=== PATIENT | female | born 1970 | race Caucasian/White ===

== ENCOUNTER → 2020-07-02 10:08 | Outpatient (CLI) | payer OTHER, SELFPAY ==
[2020-07-02 11:47] LABS: Hematocrit 36.9 % (36-46); Hemoglobin 12.1 g/dL (12.0-16.0); Mean Corpuscular HGB Conc 32.8 % (30-36); Mean Corpuscular Hemoglobin 31.4 PG (26-34); Mean Corpuscular Volume 95.7 fL (80-100); Platelet Count 275 X10^3/uL (150-400); Red Blood Cell Count 3.86 X10^6/uL (4.0-5.2); White Blood Cell Count 5.9 X10^3/uL (4.5-11.0)
[2020-07-02 11:52] LABS: Alanine Aminotransferase 17 IU/L (<35); Albumin 4.3 g/dL (3.5-5.0); Albumin Globulin Ratio 1.4 (1.0-2.8); Alkaline Phosphatase 52 U/L (38-126); Aspartate Aminotransferase 39 IU/L (14-36); Bilirubin Total 0.7 mg/dL (0.2-1.3); Blood Urea Nitrogen 13 mg/dL (7-17); Calcium 9.1 mg/dL (8.4-10.2); Carbon Dioxide 31 mmol/L (22-32); Chloride 103 mmol/L (98-107); Cholesterol 178 mg/dL (140-199); Estimated Glomerular Filt Rate > 60.0 mL/min (>60); Glucose 109 mg/dL (70-100); HDL Cholesterol 84 mg/dL (40-60); HEMOLYSIS < 15 (0-50); LDL Cholesterol Calculated 85 mg/dL (<100); Potassium 4.2 mmol/L (3.4-5.1); Sodium 135 mmol/L (137-145); Total Protein 7.3 g/dL (6.3-8.2); Triglycerides 45 mg/dL (35-150)
[2020-07-02 12:21] LABS: TSH w/ Reflex to FT4 2.08 uIU/mL (0.47-4.68)
== END ==
PROVIDERS: PCP Registered Nurse Diabetes Educator; Referring Provider Registered Nurse Diabetes Educator; Visit Provider Registered Nurse Diabetes Educator
DX: Z00.00 Encounter for general adult medical examination without abnormal findings (principal)
CPT/HCPCS: 36415; 80053; 80061; 84443; 85027

== ENCOUNTER → 2020-08-12 15:31 | Outpatient (CLI) | payer OTHER, SELFPAY ==
--- NOTE | 2020-08-12 15:31 | DI.MG.S_ITS ---
BILATERAL DIGITAL SCREENING MAMMOGRAM 3D/2D WITH CAD: 08/12/2020 CLINICAL: Routine screening. Comparison is made to exams dated: 06/09/2017 mammogram and 06/01/2018 mammogram - outside location. The tissue of both breasts is heterogeneously dense. This may lower the sensitivity of mammography. Current study was also evaluated with a Computer Aided Detection (CAD) system. No significant masses, calcifications, or other findings are seen in either breast. There has been no significant interval change. IMPRESSION: NEGATIVE There is no mammographic evidence of malignancy. A 1 year screening mammogram is recommended. This exam was interpreted at Station ID: [id number]. NOTE: For mammograms, a report in lay terms will be sent to the patient. Approximately 15% of breast malignancies will not be visualized mammographically. In the management of a palpable breast mass, a negative mammogram must not discourage biopsy of a clinically suspicious lesion. Electronically Signed By: Moise Bradford M.D., jr/brandan:08/12/2020 16:31:55 letter sent: Normal Exam ACR BI-RADS Category 1: Negative 3341F
== END ==
PROVIDERS: PCP Registered Nurse Diabetes Educator; Referring Provider Registered Nurse Diabetes Educator; Visit Provider Registered Nurse Diabetes Educator
DX: Z12.31 Encounter for screening mammogram for malignant neoplasm of breast (principal)
CPT/HCPCS: 77063; 77067

== ENCOUNTER → 2020-10-05 09:20 | Outpatient (CLI) | payer OTHER, SELFPAY ==
[2020-10-05 10:41] LABS: Alanine Aminotransferase 21 IU/L (<35); Albumin 4.1 g/dL (3.5-5.0); Albumin Globulin Ratio 1.6 (1.0-2.8); Alkaline Phosphatase 53 U/L (38-126); Aspartate Aminotransferase 36 IU/L (14-36); Bilirubin Total 0.6 mg/dL (0.2-1.3); Bilirubin Unconjugated 0.8 mg/dL (0.0-1.1); Globulin 2.6 g/dL (1.7-4.1); Glucose 106 mg/dL (70-100); HEMOLYSIS < 15 (0-50); Total Protein 6.7 g/dL (6.3-8.2)
== END ==
PROVIDERS: PCP Registered Nurse Diabetes Educator; Referring Provider Registered Nurse Diabetes Educator; Visit Provider Registered Nurse Diabetes Educator
DX: R73.01 Impaired fasting glucose (principal); R74.8 Abnormal levels of other serum enzymes
CPT/HCPCS: 36415; 80076; 82947

== ENCOUNTER → 2021-01-20 16:14 | Outpatient (CLI) | payer OTHER, SELFPAY ==
[2021-01-21 06:32] LABS: Hepatitis B Surf Ab Qualitativ Non Reactive (.)
[2021-01-21 10:45] LABS: Rubeola Measles IgG 22.7 AU/mL (Immune >16.4); Varicella IgG Antibody 447 index (Immune >165)
[2021-01-21 17:11] LABS: Mumps Virus IgG Antibody 11.3 AU/mL (Immune >10.9)
== END ==
PROVIDERS: PCP Registered Nurse Diabetes Educator; Referring Provider Registered Nurse Diabetes Educator; Visit Provider Registered Nurse Diabetes Educator
DX: Z01.84 Encounter for antibody response examination (principal); R74.8 Abnormal levels of other serum enzymes; R73.01 Impaired fasting glucose
CPT/HCPCS: 36415; 86706; 86735; 86762; 86765; 86787

== ENCOUNTER → 2021-07-13 08:53 | Outpatient (CLI) | payer OTHER, SELFPAY ==
[2021-07-13 09:20] LABS: Add Manual Diff / Slide Review NO; Basophils Absolute Auto 100 /uL (0-100); Basophils Percent Auto 2.8 % (0-2); Eosinophils Absolute Auto 200 /uL (0-450); Eosinophils Percent Auto 4.7 % (2-4); Hematocrit 36.7 % (36-46); Hemoglobin 12.1 g/dL (12.0-16.0); Lymphocytes Absolute Auto 1700 /uL (1100-4500); Lymphocytes Percent Auto 36.2 % (25-40); Mean Corpuscular HGB Conc 33.1 % (30-36); Mean Corpuscular Hemoglobin 31.6 PG (26-34); Mean Corpuscular Volume 95.4 fL (80-100); Monocytes Absolute Auto 500 /uL (0-900); Monocytes Percent Auto 9.8 % (3-14); Neutrophils Absolute Auto 2100 /uL (1500-7000); Neutrophils Percent Auto 46.5 % (50-75); Platelet Count 291 X10^3/uL (150-400); Red Blood Cell Count 3.84 X10^6/uL (4.0-5.2); Red Cell Distribution Width 13.8 % (11.6-14.8); White Blood Cell Count 4.6 X10^3/uL (4.5-11.0)
[2021-07-13 09:32] LABS: Appearance Urine UA CLEAR; Bilirubin Urine UA NEGATIVE (NEGATIVE); Color Urine UA YELLOW; Glucose Urine UA NEGATIVE (Negative); Ketones Urine UA NEGATIVE (NEGATIVE); Leukocyte Esterase Urine UA NEGATIVE (NEGATIVE); Nitrite Urine UA NEGATIVE (Negative); Occult Blood Urine UA NEGATIVE (Negative); Protein Urine UA NEGATIVE (Negative); Urobilinogen Urine UA 0.2 E.U./dL (0.2)
[2021-07-13 09:35] LABS: Bacteria Urine None Seen; Culture Indicated Urine Cult Not Indicated; RBC Urine None Seen (0-5/HPF); Urine Comments Microscopic Normal; WBC Urine None Seen (0-5/HPF)
[2021-07-13 09:36] LABS: Alanine Aminotransferase 30 IU/L (<35); Albumin 4.7 g/dL (3.5-5.0); Albumin Globulin Ratio 1.4 (1.0-2.8); Alkaline Phosphatase 53 U/L (38-126); Aspartate Aminotransferase 45 IU/L (14-36); BUN Creatinine Ratio 18.8 (6-22); Bilirubin Total 0.7 mg/dL (0.2-1.3); Blood Urea Nitrogen 15 mg/dL (7-17); C-Reactive Protein Quant < 0.5 mg/dL (<1.0); Carbon Dioxide 29 mmol/L (22-32); Chloride 105 mmol/L (98-107); Cholesterol 183 mg/dL (140-199); Estimated Glomerular Filt Rate > 60.0 mL/min (>60); Globulin 3.3 g/dL (1.7-4.1); Glucose 108 mg/dL (70-100); HDL Cholesterol 98 mg/dL (40-60); HEMOLYSIS < 15 (0-50); LDL Cholesterol Calculated 78 mg/dL (<100); Sodium 138 mmol/L (137-145); Triglycerides 37 mg/dL (35-150)
[2021-07-13 10:35] LABS: TSH w/ Reflex to FT4 2.29 uIU/mL (0.47-4.68)
[2021-07-13 11:54] LABS: Hemoglobin A1C% w Est Avg Glu 5.4 % (4.0-6.0)
== END ==
PROVIDERS: PCP Registered Nurse Diabetes Educator; Referring Provider Registered Nurse Diabetes Educator; Visit Provider Registered Nurse Diabetes Educator
DX: R74.8 Abnormal levels of other serum enzymes (principal); R73.01 Impaired fasting glucose; Z00.00 Encounter for general adult medical examination without abnormal findings; R61 Generalized hyperhidrosis
CPT/HCPCS: 36415; 80053; 80061; 81001; 83001; 83036; 84443; 85025; 86140

== ENCOUNTER → 2021-08-16 16:04 | Outpatient (CLI) | payer OTHER, SELFPAY ==
--- NOTE | 2021-08-16 16:05 | DI.MG.S_ITS ---
BILATERAL DIGITAL SCREENING MAMMOGRAM 3D/2D WITH CAD: 08/16/2021 CLINICAL: Routine screening. Comparison is made to exams dated: 08/12/2020 mammogram - [facility], 06/01/2018 mammogram, and 06/09/2017 mammogram - outside location. The tissue of both breasts is heterogeneously dense. This may lower the sensitivity of mammography. Current study was also evaluated with a Computer Aided Detection (CAD) system. No significant masses, calcifications, or other findings are seen in either breast. There has been no significant interval change. IMPRESSION: NEGATIVE There is no mammographic evidence of malignancy. A 1 year screening mammogram is recommended. This exam was interpreted at Station ID: [id number]. NOTE: For mammograms, a report in lay terms will be sent to the patient. Approximately 15% of breast malignancies will not be visualized mammographically. In the management of a palpable breast mass, a negative mammogram must not discourage biopsy of a clinically suspicious lesion. Electronically Signed By: Jareth oglesby/brandan:08/18/2021 08:57:21 letter sent: Normal Exam ACR BI-RADS Category 1: Negative 3341F
== END ==
PROVIDERS: PCP Registered Nurse Diabetes Educator; Referring Provider Registered Nurse Diabetes Educator; Visit Provider Registered Nurse Diabetes Educator
DX: Z12.31 Encounter for screening mammogram for malignant neoplasm of breast (principal)
CPT/HCPCS: 77063; 77067

== ENCOUNTER → 2021-08-31 08:11 | Outpatient (CLI) | payer OTHER, SELFPAY ==
[2021-08-31 09:02] LABS: Hematocrit 35.8 % (36-46); Hemoglobin 12.1 g/dL (12.0-16.0); Mean Corpuscular HGB Conc 33.8 % (30-36); Mean Corpuscular Volume 94.9 fL (80-100); Platelet Count 309 X10^3/uL (150-400); Red Blood Cell Count 3.78 X10^6/uL (4.0-5.2); Red Cell Distribution Width 13.1 % (11.6-14.8); White Blood Cell Count 6.6 X10^3/uL (4.5-11.0)
[2021-08-31 09:14] LABS: Hemoglobin A1C% w Est Avg Glu 5.5 % (4.0-6.0)
[2021-08-31 09:43] LABS: Alanine Aminotransferase 37 IU/L (<35); Albumin 4.1 g/dL (3.5-5.0); Albumin Globulin Ratio 1.4 (1.0-2.8); Alkaline Phosphatase 53 U/L (38-126); Aspartate Aminotransferase 51 IU/L (14-36); BUN Creatinine Ratio 21.8 (6-22); Bilirubin Total 0.5 mg/dL (0.2-1.3); Blood Urea Nitrogen 19 mg/dL (7-17); Calcium 8.9 mg/dL (8.4-10.2); Carbon Dioxide 29 mmol/L (22-32); Chloride 104 mmol/L (98-107); Cholesterol 181 mg/dL (140-199); Estimated Glomerular Filt Rate > 60.0 mL/min (>60); Globulin 2.9 g/dL (1.7-4.1); Glucose 100 mg/dL (70-100); HDL Cholesterol 85 mg/dL (40-60); HEMOLYSIS < 15 (0-50); LDL Cholesterol Calculated 87 mg/dL (<100); Potassium 4.7 mmol/L (3.4-5.1); Sodium 141 mmol/L (137-145); Triglycerides 47 mg/dL (35-150)
[2021-08-31 10:19] LABS: TSH w/ Reflex to FT4 2.12 uIU/mL (0.47-4.68)
== END ==
PROVIDERS: PCP Registered Nurse Diabetes Educator; Referring Provider Registered Nurse Diabetes Educator; Visit Provider Registered Nurse Diabetes Educator
DX: R73.01 Impaired fasting glucose (principal); R74.8 Abnormal levels of other serum enzymes
CPT/HCPCS: 36415; 80053; 80061; 83036; 84443; 85027

== ENCOUNTER → 2021-09-07 08:38 | Outpatient (CLI) | payer OTHER, SELFPAY ==
[2021-09-07 10:09] LABS: HEMOLYSIS < 15 (0-50); Iron 79 ug/dL (37-170)
[2021-09-07 10:20] LABS: Percent Iron Saturation 22 % (15-50); Total Iron Binding Capacity 365 ug/dL (265-497); Transferrin 287 mg/dL (206-381)
[2021-09-07 10:47] LABS: Hepatitis B Surface Antigen NEGATIVE s/c (NEGATIVE)
[2021-09-07 10:51] LABS: Ferritin 16 ng/mL (6-137)
[2021-09-07 11:05] LABS: Hep C Virus Ab w/Reflex Quant NEGATIVE s/c (NEGATIVE)
[2021-09-08 02:19] LABS: Hepatitis B Core AB w/Reflex Negative (Negative)
[2021-09-08 16:53] LABS: Deamidated Gliadin Ab IgA 3 units (0-19); Deamidated Gliadin Ab IgG 2 units (0-19); Immunoglobulin A,Qn 476 mg/dL (87-352); t-Transglutaminase IgA <2 U/mL (0-3)
== END ==
PROVIDERS: PCP Registered Nurse Diabetes Educator; Referring Provider Registered Nurse Diabetes Educator; Visit Provider Registered Nurse Diabetes Educator
DX: R74.8 Abnormal levels of other serum enzymes (principal)
CPT/HCPCS: 36415; 82728; 82784; 83516; 83540; 83550; 86704; 86803; 87340

== ENCOUNTER → 2021-09-15 07:40 | Outpatient (CLI) | payer OTHER, SELFPAY ==
[2021-09-16 07:45] LABS: Immunoglobulin A 479 mg/dL (87-352); Immunoglobulin G, Quantitative 958 mg/dL (586-1602); Immunoglobulin M, Quantitative 50 mg/dL (26-217)
[2021-09-16 16:51] LABS: Free Kappa Lt Chains, Serum 13.8 mg/L (3.3-19.4); Free Lambda Lt Chains,Serum 19.8 mg/L (5.7-26.3)
[2021-09-17 12:07] LABS: Albumin 3.9 g/dL (2.9-4.4); Alpha-1-Globulin 0.2 g/dL (0.0-0.4); Alpha-2-Globulin 0.5 g/dL (0.4-1.0); Gamma Globulin 0.9 g/dL (0.4-1.8); Globulin Total 2.7 g/dL (2.2-3.9); Protein, Total 6.6 g/dL (6.0-8.5)
== END ==
PROVIDERS: PCP Registered Nurse Diabetes Educator; Referring Provider Registered Nurse Diabetes Educator; Visit Provider Registered Nurse Diabetes Educator
DX: R76.8 Other specified abnormal immunological findings in serum (principal)
CPT/HCPCS: 36415; 82784; 83883; 84155; 84165

== ENCOUNTER → 2021-10-04 15:33 | Outpatient (CLI) | payer OTHER, SELFPAY ==
--- NOTE | 2021-10-04 15:34 | DI.US.S_ITS ---
PROCEDURE: US ABDOMEN LIMITED INDICATIONS: ELEVATED LIVER ENZYMES TECHNIQUE: Real-time focused scanning was performed of the abdomen, with image documentation. COMPARISON: None. FINDINGS: Liver is normal in size and homogeneous in echotexture. Gallbladder is sonographically normal. No gallstones. No gallbladder wall thickening. No pericholecystic fluid. No sonographic Pham sign. Biliary tree is nondilated. Common bile duct measures 4.5 millimeters. Pancreas is sonographically normal. IMPRESSION: No sonographic abnormality identified. Dictated by: Antoinette Zepeda MD, PhD on 10/05/2021 at 10:54 Approved by: Antoinette Zepeda MD, PhD on 10/05/2021 at 10:55
== END ==
PROVIDERS: PCP Registered Nurse Diabetes Educator; Referring Provider Registered Nurse Diabetes Educator; Visit Provider Registered Nurse Diabetes Educator
DX: R74.8 Abnormal levels of other serum enzymes (principal)
CPT/HCPCS: 76705

== ENCOUNTER → 2021-10-05 07:03 | Outpatient (CLI) | payer OTHER, SELFPAY ==
--- NOTE | 2021-10-05 07:04 | DI.US.S_ITS ---
PROCEDURE: US EXTREMELY NONVASC UPPER RT INDICATIONS: 2 SOFT TISSUE MASSES RIGHT FOREARM TECHNIQUE: Real-time scanning was performed of the right upper extremity, with image documentation. COMPARISON: None. FINDINGS: 0.8 x 0.5 x 0.8 and 1.3 x 0.3 x 0.6 centimeter isoechoic solid masses corresponds to clinically palpable lesions. Doppler evaluation of the lesions demonstrates no internal vascularity. IMPRESSION: Small, nonvascular solid masses corresponds to clinically palpable lesions. The masses have nonspecific imaging characteristics. Decision to biopsy should be based on clinical assessment. Dictated by: Antoinette Zepeda MD, PhD on 10/05/2021 at 12:28 Approved by: Antoinette Zepeda MD, PhD on 10/05/2021 at 12:30
--- NOTE | 2021-10-05 07:04 | DI.US.S_ITS ---
PROCEDURE: US EXTREMITY NONVASC UPPER LT INDICATIONS: 2 SOFT TISSUE MASSES LEFT FOREARM TECHNIQUE: Real-time scanning was performed of the left upper extremity, with image documentation. COMPARISON: None. FINDINGS: 0.9 x 0.4 x 1.0 and 0.8 x 0.4 x 1.0 centimeter isoechoic masses corresponds to clinically palpable lesions. Doppler evaluation demonstrates no internal vascularity. IMPRESSION: Small nonvascular solid masses correspond to clinically palpable lesions. Masses have nonspecific imaging characteristics. Decision to biopsy should be based on clinical assessment. Dictated by: Antoinette Zepeda MD, PhD on 10/05/2021 at 12:25 Approved by: Antoinette Zepeda MD, PhD on 10/05/2021 at 12:28
== END ==
PROVIDERS: PCP Registered Nurse Diabetes Educator; Referring Provider Registered Nurse Diabetes Educator; Visit Provider Registered Nurse Diabetes Educator
DX: M79.89 Other specified soft tissue disorders (principal)
CPT/HCPCS: 76882

== ENCOUNTER → 2021-10-21 07:25 | Outpatient (CLI) | payer OTHER, SELFPAY ==
[2021-10-22 07:09] LABS: Immunoglobulin A 457 mg/dL (87-352)
== END ==
PROVIDERS: PCP Registered Nurse Diabetes Educator; Referring Provider Registered Nurse Diabetes Educator; Visit Provider Registered Nurse Diabetes Educator
DX: R76.8 Other specified abnormal immunological findings in serum (principal)
CPT/HCPCS: 36415; 82784

== ENCOUNTER → 2021-12-11 11:21 | Outpatient (CLI) | payer OTHER, SELFPAY | PROVIDERS: PCP Registered Nurse Diabetes Educator; Visit Provider Student in an Organized Health Care Education/Training Program | DX: L02.619 Cutaneous abscess of unspecified foot (principal) | CPT/HCPCS: 87070; 87075; 87077; 87147; 87186; 87205 ==

== ENCOUNTER 2022-08-05 09:54 | Day surgery (SDC) | payer OTHER, SELFPAY ==
--- NOTE | 2022-08-05 | PATH_ITS ---
[facility] Accession Number: [id number] No. of containers..01 Tissue . 01 Material submitted: . colon - SIGMOID POLYP . 01 Diagnosis: Sigmoid Colon, Polyp, Biopsy: Colonic mucosa with a benign lymphoid aggregate and features suggestive of mucosal prolapse. Additional levels were examined. Negative for dysplasia and malignancy. MRV 08/11/2022 1420 Local . 01 Electronically signed: . Emili Wagner MD, Pathologist NPI- [id number] . 01 Gross description: . SIGMOID POLYP: Received in formalin are 2 fragment(s) of alonso, soft tissue measuring 0.3 x 0.2 x 0.2 cm to 0.2 x 0.1 x 0.1 cm submitted entirely in 1 cassette(s) /CPE 08/06/2022 1113 Local . 01 Pathologist provided ICD-10: K63.5 . 01 CPT . 905386 Specimen Comment: A courtesy copy of this report has been sent to [facility] Performed at: 01 [facility] [address] [place] [address], [place], [place] [id number] MD True Ribera MD Phone: [phone]
[2022-08-05 10:14] VITALS: BMI 19.3
[2022-08-05 10:18] VITALS: BP 110/67; PULSE 73; RESP 12; TEMP 36.1; O2SAT 100
[2022-08-05] MEDS: LACTATED RINGERS 1,000 ML 42 ML IV (10:24)
--- NOTE | 2022-08-05 10:56 | PM.HP.1 ---
History of Present Illness History of Present Illness Chief complaint: Screening Colonoscopy Narrative: Ms. Park presents today for screening colonoscopy. She is never had a colonoscopy before. Does have a family history of colon cancer a maternal grandmother who had colon cancer although the thought was that she had some sort of exposure that caused it. Additionally she had a maternal great uncle who had colon cancer. And there is some question of whether her paternal grandfather also had colon cancer we do know he had a portion of his colon removed. She has brothers and sisters but they are not old enough for screening and have not had it yet. She is not having any concerning symptoms of bleeding or changes in bowel habits. Patient History Medical History Allergies (~1985) Chicken pox (~1976) Paronychia of toe of left foot Plantar warts (~1984) Raynauds disease Surgical History Anesthesia Encounter for Essure implantation (~09/2009) History of section (~08/07/09) History of eye surgery (~2011) History of tubal ligation (~07/18/05) Family & Social History Family History Father Diabetes mellitus History of heart disease Hyperlipidemia Mother Osteoporosis Arthritis Grandmother Cancer Grandfather Diabetes mellitus History of heart disease Hyperlipidemia Grandmother Mental health problem Social History: household members spouse Tobacco & Substance use: Smoking Status Never smoker alcohol intake current alcohol intake frequency a few times a month Substance Use Type does not use Meds Home Medications and Allergies Home Medications Medication Instructions Recorded Confirmed Type ascorbate calcium (vitamin C) 500 mg PO DAILY 07/01/20 12/11/21 History fluticasone propionate 50 1 spray intranasal DAILY PRN 07/01/20 08/05/22 History mcg/actuation nasal Allergy Symptoms spray,suspension [id number] 1 tab PO DAILY 07/01/20 12/11/21 History loratadine 10 mg tablet (Claritin) 10 mg PO DAILY PRN Allergy Symptoms 07/01/20 08/05/22 History cholecalciferol (vitamin D3) 25 25 mcg PO DAILY 11/23/21 08/05/22 History mcg (1,000 unit) capsule (Vitamin D3) multivitamin 1 tab PO DAILY 08/05/22 08/05/22 History Allergies Allergy/AdvReac Type Severity Reaction Status Date / Time No Known Drug Allergies Allergy Verified 08/05/22 10:10 Exam Vital Signs (past 8 hours): - 08/05/22 10:18 Temperature 97.0 F L Pulse Rate 73 Respiratory Rate 12 Blood Pressure 110/67 Pulse Oximetry 100 Oxygen Delivery Method Room Air Oxygen Delivery Method Room Air Const General: cooperative, healthy appearing and comfortable HENNV Mouth: oral mucosae normal Eyes General: appearance normal, both eyes and all related structures Resp Effort & Inspection: normal respiratory effort and able to speak in complete sentences GI Palpation: soft and No tender Assessment & Plan Assessment and plan (1) Colon cancer screening: Status: Acute (2) Family history of malignant neoplasm of colon in relative diagnosed when older than 50 years of age: Status: Acute Plan Mila Park presents today for screening colonoscopy I discussed the risks benefits and alternatives including but not limited to perforation of the colon and an incomplete exam she fully understands these risks and would like to proceed. Time Spent With Patient Critical Care time: I spent a total of [] minutes of critical care time on this patient's care today; this time is exclusive of procedural time.
[2022-08-05 11:45] VITALS: BP 93/42; PULSE 62; RESP 17; TEMP 36.2; O2SAT 100
--- NOTE | 2022-08-05 11:46 | PM.OP.COLON ---
Operative Date/Time/Diagnoses Date of procedure: 08/05/22 Time of procedure: 11:46 Pre-op diagnosis: Colon cancer screening, family history of colon cancer Post-op diagnosis: same Procedure & Clinicians Study performed: Colonoscopy and biopsy Same procedure as scheduled: Yes Indications: Colon cancer screening, family history of colon Surgeon: Sandra Ram Procedure Notes Procedure in detail: Patient was taken to the endoscopy suite and placed in a left lateral decubitus position. A time-out was performed. Conscious sedation was induced with the help of an anesthesiologist. A digital rectal exam was performed there were no masses or strictures. Colonoscope was then introduced into the anal canal and advanced through to the cecum. The bowel prep was good Graham bowel score of 2. Appendiceal orifice was photographed. The scope was then withdrawn for 18 minutes. In the sigmoid colon few photographs were taken of some scattered but large diverticula. Additionally there was a rather large approximately 1 cm sized pedunculated polyp. This was removed with a hot snare. Photographs were taken after the biopsy. The scope was then withdrawn and retroflexed at the anal verge photograph was taken. No other polyps or abnormalities were seen. Findings: divertiulosis and polyp(s) Specimen(s): other (1. Large Sigmoid colon polyp) Complications: none Post-procedure Plan for aftercare: Follow up maybe recommended as early as 3 years depending on pathology of this polyp.
[2022-08-05 11:50] VITALS: BP 93/42; PULSE 62; RESP 14; O2SAT 100
[2022-08-05 11:51] VITALS: BP 106/61; PULSE 77; RESP 18; O2SAT 100
[2022-08-05 11:56] VITALS: BP 108/58; PULSE 64; RESP 14; O2SAT 100
[2022-08-05 12:11] VITALS: BP 124/69; PULSE 57; RESP 14; O2SAT 100
== END 2022-08-05 12:31 | disposition home or self-care (01) ==
PROVIDERS: PCP Registered Nurse Diabetes Educator; Referring Provider Surgery; Visit Provider Surgery
PROC: 0DJD8ZZ Inspection of Lower Intestinal Tract, Via Natural or Artificial Opening Endoscopic (ICD-10-PCS; CPT 45378; principal; 2022-08-05 11:00)
DX: Z12.11 Encounter for screening for malignant neoplasm of colon (principal); Z80.0 Family history of malignant neoplasm of digestive organs; K57.30 Diverticulosis of large intestine without perforation or abscess without bleeding
CPT/HCPCS: 45385; J2250; J2704; J3010

== ENCOUNTER → 2022-08-16 12:50 | Outpatient (CLI) | payer OTHER, SELFPAY ==
--- NOTE | 2022-08-16 | DI.MG.S_ITS ---
BILATERAL DIGITAL SCREENING MAMMOGRAM 3D/2D WITH CAD: 08/16/2022 CLINICAL: Routine screening. Comparison is made to exams dated: 08/16/2021 mammogram, 08/12/2020 mammogram - [facility], 06/01/2018 mammogram, and 06/09/2017 mammogram - outside location. Both breasts are heterogeneously dense, which may obscure small masses (category c / 51-75% glandular tissue). Current study was also evaluated with a Computer Aided Detection (CAD) system. No significant masses, calcifications, or other findings are seen in either breast. There has been no significant interval change. IMPRESSION: NEGATIVE There is no mammographic evidence of malignancy. A 1 year screening mammogram is recommended. Based on the Tyrer Cuzick model (a risk assessment model) the patient's lifetime risk is 16.1% and her 10 year risk is 3.7%. According to the ACR, ACS, and NCCN guidelines, an annual breast MRI exam along with mammogram is recommended if the patient's lifetime risk is 20% or greater. This exam was interpreted at Station ID: [id number]. NOTE: For mammograms, a report in lay terms will be sent to the patient. Approximately 15% of breast malignancies will not be visualized mammographically. In the management of a palpable breast mass, a negative mammogram must not discourage biopsy of a clinically suspicious lesion. Electronically Signed By: Jareth oglesby/brandan:08/16/2022 15:02:39 letter sent: Normal Exam ACR BI-RADS Category 1: Negative 3341F
== END ==
PROVIDERS: PCP Registered Nurse Diabetes Educator; Referring Provider Registered Nurse Diabetes Educator; Visit Provider Registered Nurse Diabetes Educator
DX: Z12.31 Encounter for screening mammogram for malignant neoplasm of breast (principal)
CPT/HCPCS: 77063; 77067

== ENCOUNTER → 2022-08-26 16:50 | Outpatient (CLI) | payer OTHER, SELFPAY ==
[2022-08-26 17:19] LABS: Hematocrit 38.1 % (36-46); Hemoglobin 12.9 g/dL (12.0-16.0); Mean Corpuscular HGB Conc 33.8 % (30-36); Mean Corpuscular Hemoglobin 31.6 PG (26-34); Mean Corpuscular Volume 93.5 fL (80-100); Platelet Count 299 X10^3/uL (150-400); Red Blood Cell Count 4.07 X10^6/uL (4.0-5.2); Red Cell Distribution Width 13.1 % (11.6-14.8); White Blood Cell Count 11.8 X10^3/uL (4.5-11.0)
[2022-08-26 17:33] LABS: Alanine Aminotransferase 21 IU/L (<35); Albumin 4.5 g/dL (3.5-5.0); Albumin Globulin Ratio 1.5 (1.0-2.8); Alkaline Phosphatase 62 U/L (38-126); Aspartate Aminotransferase 36 IU/L (14-36); BUN Creatinine Ratio 24.3 (6-22); Bilirubin Total 0.8 mg/dL (0.2-1.3); Blood Urea Nitrogen 17 mg/dL (7-17); Calcium 9.4 mg/dL (8.4-10.2); Carbon Dioxide 27 mmol/L (22-32); Chloride 103 mmol/L (98-107); Cholesterol 193 mg/dL (140-199); Estimated Glomerular Filt Rate > 60 mL/min (>60); Globulin 3.1 g/dL (1.7-4.1); Glucose 99 mg/dL (70-100); HEMOLYSIS 26 (0-50); Potassium 4.8 mmol/L (3.4-5.1); Sodium 140 mmol/L (137-145); Total Protein 7.6 g/dL (6.3-8.2); Triglycerides 59 mg/dL (35-150)
[2022-08-26 17:40] LABS: HDL Cholesterol 104 mg/dL (40-60); LDL Cholesterol Calculated 77 mg/dL (<100)
[2022-08-26 18:03] LABS: TSH w/ Reflex to FT4 1.58 uIU/mL (0.47-4.68)
[2022-08-28 07:47] LABS: Labcorp Hemoglobin (Hb) A1c 5.5 % (4.8-5.6)
== END ==
PROVIDERS: PCP Registered Nurse Diabetes Educator; Referring Provider Registered Nurse Diabetes Educator; Visit Provider Registered Nurse Diabetes Educator
DX: Z00.00 Encounter for general adult medical examination without abnormal findings (principal); R73.01 Impaired fasting glucose; R74.8 Abnormal levels of other serum enzymes; R79.89 Other specified abnormal findings of blood chemistry
CPT/HCPCS: 36415; 80053; 80061; 83036; 84443; 85027